=== PATIENT | male | born 1985 | race Caucasian/White ===

== ENCOUNTER 2019-10-11 11:14 | Emergency (ER) | payer OTHER ==
--- NOTE | 2019-10-11 11:37 | ED ---
Lower Extremity - HPI Summary HPI Summary: The patient is a 33-year-old male presenting to the ED with the chief complaint of right lateral ankle pain. Patient states he fell yesterday and injured his lateral portion of the right ankle. He remained able to work, however with discomfort. Denies any erythema or swelling. Pain with flexion and extension however denies any limitations on range of motion. Denies any pain to the lower extremity otherwise. He does endorse pain over the dorsum of the right foot warm to the lateral side and there is a notable large cyst present. States it has been there x 20 years but growing and more painful. - History of Current Complaint Chief Complaint: EDExtremityLower Stated Complaint: RT ANKLE INJURY PER PT Time Seen by Provider: 10/11/19 11:23 Hx Obtained From: Patient Mechanism Of Injury: Twisted Onset of Pain: Immediate Onset/Duration: Hours Severity Initially: Moderate Severity Currently: Mild Pain Intensity: 9 Pain Scale Used: 0-10 Numeric Timing: Constant Location: Is Discrete @ - right lateral ankle Character Of Pain: Aching Associated Signs And Symptoms: Negative: Swelling, Redness, Bruising Aggravating Factor(s): Standing, Ambulation Alleviating Factor(s): Rest Able to Bear Weight: No - Risk Factors Gout Risk Factors: Negative DVT Risk Factors: Negative Septic Arthritis Risk Factor: Negative - Allergies/Home Medications Allergies/Adverse Reactions: Allergies Allergy/AdvReac Type Severity Reaction Status Date / Time No Known Allergies Allergy Verified 10/11/19 11:18 Home Medications: Home Medications NK [No Home Medications Reported] 03/03/16 [History Confirmed 10/11/19] PMH/Surg Hx/FS Hx/Imm Hx Previously Healthy: Yes - Immunization History Hx Pertussis Vaccination: No Immunizations Up to Date: Yes Infectious Disease History: No Infectious Disease History: Denies: Traveled Outside the [place] in Last 30 Days - Social History Occupation: Employed Full-time Lives: With Family Alcohol Use: Occasionally Hx Substance Use: No Substance Use Type: Reports: None Smoking Status (MU): Light Every Day Tobacco Smoker Review of Systems Negative: Fever, Chills, Fatigue, Skin Diaphoresis Negative: Palpitations, Chest Pain Negative: Shortness Of Breath Genitourinary: Negative Positive: no symptoms reported, see HPI Negative: Arthralgia, Myalgia Positive: Other - right dorsal foot cyst Neurological/Mental Status: Negative All Other Systems Reviewed And Are Negative: Yes Physical Exam Triage Information Reviewed: Yes Vital Signs On Initial Exam: Initial Vitals Temp Pulse Resp BP Pulse Ox 98.3 F 63 16 126/94 100 10/11/19 11:16 10/11/19 11:16 10/11/19 11:16 10/11/19 11:16 10/11/19 11:16 Vital Signs Reviewed: Yes Appearance: Positive: Well-Appearing, Well-Nourished Skin: Positive: Warm, Skin Color Reflects Adequate Perfusion Head/Face: Positive: Normal Head/Face Inspection Eyes: Positive: EOMI, TERENCE, Conjunctiva Clear Neck: Positive: Supple, No Lymphadenopathy Respiratory/Lung Sounds: Positive: Clear to Auscultation, Breath Sounds Present Cardiovascular: Positive: RRR, Pulses are Symmetrical in both Upper and Lower Extremities Musculoskeletal: Positive: Pain @ - dorsal foot pain with mass, R lateral ankle pain without swelling Neurological: Positive: Sensory/Motor Intact, Alert, Oriented to Person Place, Time, Speech Normal Psychiatric: Positive: Affect/Mood Appropriate Procedures - Sedation Patient Received Moderate/Deep Sedation with Procedure: No Diagnostics - Vital Signs Vital Signs Temp Pulse Resp BP Pulse Ox 10/11/19 11:16 98.3 F 63 16 126/94 100 - Laboratory Lab Statement: Any lab studies that have been ordered have been reviewed, and results considered in the medical decision making process. Lower Extremity Course/Dx - Course Course Of Treatment: Patient presents to the ED after a right ankle injury. Patient is having pain to the right lateral portion of the ankle. He is also having some tissue swelling to the dorsum of the foot he states has been there for approximately 20 years and was diagnosed as a cyst. He states he would like to have a follow-up with orthopedics regarding this. He states he is having more pain to this area recently. X-ray obtained which shows soft tissue swelling to the dorsum of the, no ankle fracture is seen. Patient is given crutches as he states he feels he is unable to ambulate independently. Jake wrap to the area. Orthopedic consultation. - Diagnoses Provider Diagnoses: Ankle strain, Foot swelling Discharge ED - Sign-Out/Discharge Documenting (check all that apply): Patient Departure - Discharge Plan Condition: Stable Disposition: HOME Patient Education Materials: Arthralgia (ED) Forms: *Work Release Referrals: Daniel Booker MD [Medical Doctor] - Yasmany Michele MD [Medical Doctor] - No Primary Care Phys,NOPCP [Primary Care Provider] - Additional Instructions: Please follow up with one of our ortho surgeons Call today to make an appt - Billing Disposition and Condition Condition: STABLE Disposition: Home
[2019-10-11 12:43] VITALS: BP 124/69
== END 2019-10-11 12:42 | disposition home or self-care (01) ==
LOC: ED 11:14
DX: S96.911A Strain of unspecified muscle and tendon at ankle and foot level, right foot, initial encounter (principal); M79.89 Other specified soft tissue disorders; F17.200 Nicotine dependence, unspecified, uncomplicated; W19.XXXA Unspecified fall, initial encounter; Y92.9 Unspecified place or not applicable
CPT/HCPCS: 99282